=== PATIENT | female | born 1995 | race Caucasian/White ===

== ENCOUNTER 2021-06-22 14:51 | Emergency (ER) | payer SELFPAY ==
[2021-06-22] MEDS ORDERED: traMADol HCl 50 MG TAB ONE (15:21)
[2021-06-22] MEDS ORDERED: Ibuprofen 800 MG TAB ONE (15:21)
== END 2021-06-22 15:54 | disposition home or self-care (01) ==
LOC: BURERS 14:51
DX: S93.401A Sprain of unspecified ligament of right ankle, initial encounter (principal); F17.210 Nicotine dependence, cigarettes, uncomplicated; X50.1XXA Overexertion from prolonged static or awkward postures, initial encounter

== ENCOUNTER 2022-12-07 11:06 | Emergency (ER) | payer SELFPAY ==
[2022-12-07] MEDS ORDERED: Promethazine HCl 25 MG/ML VIAL ONE (11:25)
[2022-12-07] MEDS ORDERED: Thiamine HCl 200 MG/2 ML VIAL ONE (11:25)
[2022-12-07] MEDS ORDERED: Folic Acid 5 MG/ML MDV ONE (11:25)
[2022-12-07] MEDS ORDERED: Famotidine/PF 20 mg/2ml Vial ONE (11:41)
[2022-12-07 11:44] LABS: #Eosinphils 0.1 thou/uL (0.0-0.7); #Lymphocytes 1.6 thou/uL (1.20-3.40); #Monocytes 0.7 thou/uL (0.11-0.59); #Neutrophils 7.7 thou/uL (1.40-6.50); %Basophils 0.5 % (0.0-1.0); %Eosinophils 0.6 % (0.0-10.0); %Monocytes 6.4 % (0.0-10.0); %Neutrophils 76.5 % (42.0-75.0); Hematocrit 39.6 % (36.0-47.0); Hemoglobin 13.3 g/dL (12.0-16.0); Mean Corpuscular HGB CONC 33.7 g/dL (32.0-36.0); Mean Corpuscular Hemoglobin 33.4 pg (27.0-31.0); Mean Platelet Volume 7.9 fL (7.4-10.4); Platelet Count 210 10x3/uL (130-400); White Blood Cell (WBC) Count 10.1 10x3/uL (4.8-10.8)
[2022-12-07 11:58] LABS: ALT (SGPT) 12 U/L (8-55); AST (SGOT) 16 U/L (5-34); Alkaline Phosphatase 77 U/L (40-110); Anion Gap 15 mmol/L (10-20); BUN (Urea Nitrogen) 15 mg/dL (7.0-18.7); Bilirubin, Total 0.7 mg/dL (0.2-1.2); Calc. Creatinine Clearance 0 mL/min (70-130); Calcium 8.5 mg/dL (7.8-10.44); Carbon Dioxide 22 mmol/L (22-29); Chloride 105 mmol/L (98-107); Estimated GFR 125; Globulin 2.2 g/dL (2.4-3.5); Glucose 78 mg/dL (70-105); Lipase 33 U/L (8-78); Potassium 3.1 mmol/L (3.5-5.1); Protein, Total 6.2 g/dL (6.0-8.3); Sodium 139 mmol/L (136-145)
[2022-12-07 11:59] LABS: Bilirubin Small (Negative); Blood, Urine Negative (Negative); Glucose, Urine (Dipstick) Negative (Negative); Ketone, Urine Negative (Negative); Leukocyte Negative (Negative); Nitrite Positive (Negative); Protein, Urine (Dipstick) 30 mg/dL (Neg-Trace); pH, Urine 5.5 (5.0-9.0)
[2022-12-07 12:07] LABS: Clarity Hazy (Clear); Specific Gravity, Urine 1.032 (1.002-1.036)
[2022-12-07 12:08] LABS: Bacteria/HPF 2+ HPF (None Seen); CAUTI Indications for Culture Pregnancy; RBC/HPF 0-3 HPF (0-3)
[2022-12-07 12:09] LABS: Pregnancy Test - Urine (BHCG) Negative (Negative); Pregu Control Background? CLEAR/WHITE (CLR/WHITE); Pregu Control Bar Appear? YES (CONTROL BAR); Specific Gravity 1.032 (1.002-1.036)
[2022-12-07 12:10] LABS: Urine Culture Reflex Yes Yes
== END 2022-12-07 13:31 | disposition home or self-care (01) ==
LOC: BURERS 11:06
DX: N39.0 Urinary tract infection, site not specified (principal); F17.210 Nicotine dependence, cigarettes, uncomplicated; F17.290 Nicotine dependence, other tobacco product, uncomplicated
CPT/HCPCS: 36415; 80053; 81001; 81025; 83690; 85025; 87077; 87086; 87186; 93005; 96361; 96374; 96375; J2550; J3411; S0028